=== PATIENT | male | born 1990 | race African-American/Black ===

== ENCOUNTER 2018-04-20 21:00 | Emergency (ER) | payer OTHER ==
--- NOTE | 2018-04-20 22:56 | EDPHYS ---
Physician Documentation [facility] Name: Keagan Meier Age: 27 yrs Sex: Male : 1990 Arrival Date: 04/20/2018 Time: 21:02 Bed 28 Private MD: ED Physician Luis Antonio Santos HPI: 04/21 00:00 This 27 yrs old Black Male presents to ER via Ambulatory with complaints of Cyst. pm1 00:00 The patient presents to the emergency department with pain in the rectal area. Onset: pm1 The symptoms/episode began/occurred 3 day(s) ago. Context: the patient has no known special context relating to the rectal area complaint(s). Modifying factors: The symptoms are alleviated by nothing, The symptoms are aggravated by sitting position. Associate signs and symptoms: Pertinent negatives: abdominal pain, constipation, diarrhea, fever, lower GI bleeding, vomiting. The patient has not experienced similar symptoms in the past. The patient has not recently seen a physician. Historical: - Allergies: 04/20 21:25 No Known Allergies; fc - Home Meds: 21:25 None [Active]; fc - PMHx: 21:25 None; fc - PSHx: 21:25 left hand surg; fc - Immunization history:: Last tetanus immunization: unknown. - Social history:: Smoking status: Patient uses tobacco products, 1.5 ppd, Patient uses alcohol, occasionally. Patient/guardian denies using street drugs. - Ebola Screening: : Patient negative for fever greater than or equal to 101.5 degrees Fahrenheit, and additional compatible Ebola Virus Disease symptoms Patient denies exposure to infectious person Patient denies travel to an Ebola-affected area in the 21 days before illness onset. ROS: 04/21 00:00 Constitutional: Negative for fever, chills, and weight loss, Neck: Negative for injury, pm1 pain, and swelling, Cardiovascular: Negative for chest pain, palpitations, and edema, Respiratory: Negative for shortness of breath, cough, wheezing, and pleuritic chest pain. Back: Negative for injury and pain, : Negative for injury, bleeding, discharge, and swelling, MS/Extremity: Negative for injury and deformity, Skin: Negative for injury, rash, and discoloration, Neuro: Negative for headache, weakness, numbness, tingling, and seizure. Abdomen/GI: Positive for rectal pain, Negative for abdominal pain, nausea, vomiting, and diarrhea, black/tarry stool, rectal bleeding. Exam: 00:00 Constitutional: This is a well developed, well nourished patient who is awake, alert, pm1 and in no acute distress. Head/Face: Normocephalic, atraumatic. Chest/axilla: Normal chest wall appearance and motion. Nontender with no deformity. No lesions are appreciated. Cardiovascular: Regular rate and rhythm with a normal S1 and S2. No gallops, murmurs, or rubs. Normal PMI, no JVD. No pulse deficits. Respiratory: Lungs have equal breath sounds bilaterally, clear to auscultation and percussion. No rales, rhonchi or wheezes noted. No increased work of breathing, no retractions or nasal flaring. Back: No spinal tenderness. No costovertebral tenderness. Full range of motion. 00:00 Skin: Warm, dry with normal turgor. Normal color with no rashes, no lesions, and no evidence of cellulitis. MS/ Extremity: Pulses equal, no cyanosis. Neurovascular intact. Full, normal range of motion. 00:00 Abdomen/GI: Inspection: abdomen appears normal, Bowel sounds: normal, Palpation: abdomen is soft and non-tender, Rectal exam: hemorrhoid(s), external, with inflammation, with pain, without bleeding, without thrombosis, tenderness, that is moderate, the exam is chaperoned by the nurse. Vital Signs: 04/20 21:25 BP 119 / 77; Pulse 90; Resp 16; Temp 98.4(O); Pulse Ox 98% on R/A; Weight 72.57 kg (R); fc Height 5 ft. 4 in. (162.56 cm) (R); Pain 10/10; 23:19 BP 122 / 82; Pulse 84; Resp 18; Pulse Ox 99% on R/A; tl3 21:25 Body Mass Index 27.46 (72.57 kg, 162.56 cm) fc MDM: 22:10 Patient medically screened. pm1 22:49 Data reviewed: vital signs. Data interpreted: Pulse oximetry: on room air is 98 %. pm1 Interpretation: normal. Counseling: I had a detailed discussion with the patient and/or guardian regarding: the historical points, exam findings, and any diagnostic results supporting the discharge/admit diagnosis, the need for outpatient follow up, a general surgeon, to return to the emergency department if symptoms worsen or persist or if there are any questions or concerns that arise at home. Administered Medications: 23:18 Drug: TORadol 60 mg Route: IM; Site: left gluteus; tl3 23:19 Follow up: Response: Medication administered at discharge. tl3 Disposition: 04/21 06:31 Co-signature as Attending Physician, Luis Antonio Santos MD I agree with the assessment and tw4 plan of care. Disposition: 04/20/18 22:56 Discharged to Home. Impression: Hemorrhoid. - Condition is Stable. - Discharge Instructions: Hemorrhoids. - Prescriptions for Colace 100 mg Oral Tablet - take 1 tablet by ORAL route every 12 hours; 14 tablet. Tylenol- Codeine #3 300-30 mg Oral Tablet - take 2 tablets by ORAL route every 6 hours As needed; 20 tablet. Anusol- HC 2.5 % Rectal Cream - Apply to affected area 1 application by TOPICAL route every 8 hours As needed; 30 gram. - Medication Reconciliation Form, Thank You Letter, Prescription Opioid Use form. - Follow up: Emergency Department; When: As needed; Reason: Worsening of condition. Follow up: William Cortes MD; When: 1 - 2 days; Reason: Recheck today's complaints, Continuance of care, Re-evaluation by your physician. - Problem is new. - Symptoms have improved. Signatures: Rochelle Rivas, RN RN Talon Anne, TITLE PROCESSOR TITLE PROCESSOR pm1 Luis Antonio Satnos MD MD tw4 Ivy Gibbons RN RN tl3 Corrections: (The following items were deleted from the chart) 04/20 23:21 22:56 04/20/2018 22:56 Discharged to Home. Impression: Hemorrhoid. Condition is Stable. tl3 Forms are Medication Reconciliation Form, Thank You Letter, Antibiotic Education, Prescription Opioid Use. Follow up: Emergency Department; When: As needed; Reason: Worsening of condition. Follow up: William Cortes; When: 1 - 2 days; Reason: Recheck today's complaints, Continuance of care, Re-evaluation by your physician. Problem is new. Symptoms have improved. pm1
--- NOTE | 2018-04-20 22:56 | ER ---
Nurse's Notes [facility] Name: Keagan Meier Age: 27 yrs Sex: Male : 1990 Arrival Date: 04/20/2018 Time: 21:02 Bed 28 Private MD: Diagnosis: Hemorrhoid Presentation: 04/20 21:22 Presenting complaint: Patient states: that he has a cyst right above his "butt hole" fc that has been there for about 3 days. It is getting worse and is very tender. Even hurts to sit. Transition of care: patient was not received from another setting of care. Onset of symptoms was April 17, 2018. Risk Assessment: Do you want to hurt yourself or someone else? Patient reports no desire to harm self or others. Initial Sepsis Screen: Does the patient meet any 2 criteria? No. Patient's initial sepsis screen is negative. Does the patient have a suspected source of infection? No. Patient's initial sepsis screen is negative. Care prior to arrival: None. 21:22 Method Of Arrival: Ambulatory 21:22 Acuity: DOUG 4 Triage Assessment: 21:25 General: Appears uncomfortable, slender, Behavior is calm, cooperative, appropriate for age. Pain: Complains of pain in coccyx Pain currently is 10 out of 10 on a pain scale. Quality of pain is described as aching, throbbing, Pain began 2-3 days ago. Is continuous, Aggravated by increased activity, repositioning. EENT: No deficits noted. Neuro: Level of Consciousness is awake, alert, obeys commands, Oriented to person, place, time, situation. Cardiovascular: No deficits noted. Respiratory: No deficits noted. GI: No deficits noted. : No deficits noted. Derm: Skin is pink, warm \\T\\ dry. Abscess located on coccyx Reports pain. Musculoskeletal: Circulation, motion, and sensation intact. Capillary refill < 3 seconds, Range of motion: intact in all extremities. Historical: - Allergies: 21:25 No Known Allergies; fc - Home Meds: 21:25 None [Active]; fc - PMHx: 21:25 None; fc - PSHx: 21:25 left hand surg; fc - Immunization history:: Last tetanus immunization: unknown. - Social history:: Smoking status: Patient uses tobacco products, 1.5 ppd, Patient uses alcohol, occasionally. Patient/guardian denies using street drugs. - Ebola Screening: : Patient negative for fever greater than or equal to 101.5 degrees Fahrenheit, and additional compatible Ebola Virus Disease symptoms Patient denies exposure to infectious person Patient denies travel to an Ebola-affected area in the 21 days before illness onset. Screenin:16 Abuse screen: Denies threats or abuse. Nutritional screening: No deficits noted. tl3 Tuberculosis screening: No symptoms or risk factors identified. Fall Risk None identified. Assessment: 22:16 General: Appears uncomfortable, slender, well groomed, well developed, well nourished, tl3 Behavior is calm, cooperative, appropriate for age. Pain: Complains of pain in buttocks and coccyx. Neuro: Level of Consciousness is awake, alert, obeys commands, Oriented to person, place, time, situation, Appropriate for age. Cardiovascular: No deficits noted. Denies chest pain, diaphoresis, fatigue, lightheadedness, nausea, palpitations, shortness of breath, syncope. Respiratory: Airway is patent Respiratory effort is even, unlabored, Respiratory pattern is regular, symmetrical. GI: No signs and/or symptoms were reported involving the gastrointestinal system. : No signs and/or symptoms were reported regarding the genitourinary system. EENT: No signs and/or symptoms were reported regarding the EENT system. Derm: Abscess located on buttocks and coccyx. Musculoskeletal: No signs and/or symptoms reported regarding the musculoskeletal system. 23:19 Reassessment: Patient appears in no apparent distress at this time. No changes from tl3 previously documented assessment. Patient and/or family updated on plan of care and expected duration. Pain level reassessed. Patient is alert, oriented x 3, equal unlabored respirations, skin warm/dry/pink. Vital Signs: 21:25 BP 119 / 77; Pulse 90; Resp 16; Temp 98.4(O); Pulse Ox 98% on R/A; Weight 72.57 kg (R); fc Height 5 ft. 4 in. (162.56 cm) (R); Pain 10/10; 23:19 BP 122 / 82; Pulse 84; Resp 18; Pulse Ox 99% on R/A; tl3 21:25 Body Mass Index 27.46 (72.57 kg, 162.56 cm) ED Course: 21:02 Patient arrived in ED. am2 21:24 Triage completed. fc 21:25 Arm band placed on Patient placed in waiting room, Patient notified of wait time. fc 22:10 Talon Anne NP is PHCP. pm1 22:10 Luis Antonio Santos MD is Attending Physician. pm1 22:15 Ivy Gibbons, RN is Primary Nurse. tl3 22:16 Patient has correct armband on for positive identification. tl3 22:16 No provider procedures requiring assistance completed. Patient did not have IV access tl3 during this emergency room visit. 22:55 William Cortes MD is Referral Physician. pm1 Administered Medications: 23:18 Drug: TORadol 60 mg Route: IM; Site: left gluteus; tl3 23:19 Follow up: Response: Medication administered at discharge. tl3 Outcome: 22:56 Discharge ordered by . pm1 23:19 Discharged to home ambulatory. tl3 23:19 Condition: good 23:19 Discharge instructions given to patient, Instructed on discharge instructions, follow up and referral plans. medication usage, Demonstrated understanding of instructions, follow-up care, medications, Prescriptions given X 3. 23:21 Patient left the ED. tl3 Signatures: Rochelle Rivas RN RN Talon Anne, COLLEEN BUTTER PRODUCTION SUPERVISOR pm1 Felipa Vazquez am2 Ivy Gibbons, RN RN tl3
[2018-04-20] MEDS ORDERED: KETOROLAC 30 MG/ML INJ ONE (23:04)
== END 2018-04-20 23:21 | disposition home or self-care (01) ==
LOC: ER 21:00
DX: K64.4 Residual hemorrhoidal skin tags (principal); F17.210 Nicotine dependence, cigarettes, uncomplicated
CPT/HCPCS: 96372; 99283

== ENCOUNTER 2018-04-24 18:28 | Emergency (ER) | payer OTHER ==
[2018-04-24] MEDS ORDERED: LIDOCAINE VISCOUS 2% SOLN 15 ML UDC ONE (19:15)
[2018-04-24] MEDS ORDERED: LIDOCAINE JELLY 2%- 5 ML TUBE ONE (19:15)
--- NOTE | 2018-04-24 19:28 | ER ---
Nurse's Notes [facility] Name: Keagan Meier Age: 27 yrs Sex: Male : 1990 Arrival Date: 04/24/2018 Time: 18:32 Bed 20 Private MD: None, None Diagnosis: External Hermorrhoid - Non thrombosed Presentation: 04/24 18:40 Presenting complaint: Patient states: " I was here last week and they said I had ph hemorrhoids but it's not getting any better. It still really hurts and I had to leave work." Pt denies N/V or constipation. Transition of care: patient was not received from another setting of care. Onset of symptoms was April 24, 2018. Risk Assessment: Do you want to hurt yourself or someone else? Patient reports no desire to harm self or others. Initial Sepsis Screen: Does the patient meet any 2 criteria? No. Patient's initial sepsis screen is negative. Does the patient have a suspected source of infection? No. Patient's initial sepsis screen is negative. Care prior to arrival: None. 18:40 Method Of Arrival: Ambulatory ph 18:40 Acuity: DOUG 4 ph Historical: - Allergies: 18:43 No Known Allergies; ph - Home Meds: 18:43 Tylenol #3 Oral [Active]; ph - PSHx: 18:43 left hand surg; ph - Immunization history:: Adult Immunizations unknown. - Social history:: Smoking status: Patient uses tobacco products, smokes one-half pack cigarettes per day. - Ebola Screening: : No symptoms or risks identified at this time. Screenin:00 Abuse screen: Denies threats or abuse. Denies injuries from another. Nutritional bs1 screening: No deficits noted. Tuberculosis screening: No symptoms or risk factors identified. Fall Risk None identified. Assessment: 19:10 General: Appears in no apparent distress. uncomfortable, Behavior is cooperative. Pain: bs1 Complains of pain in anal. Neuro: Level of Consciousness is awake, alert, obeys commands, Oriented to person, place, time, situation, Appropriate for age. Cardiovascular: Denies chest pain, shortness of breath, Heart tones S1 S2 present Capillary refill < 3 seconds Patient's skin is warm and dry. 19:10 Respiratory: Airway is patent Trachea midline Respiratory effort is even, unlabored, bs1 Respiratory pattern is regular, symmetrical, Breath sounds are clear bilaterally. GI: Abdomen is round non-distended, Bowel sounds present X 4 quads. GI: Reports hemorrhoids. : No signs and/or symptoms were reported regarding the genitourinary system. EENT: No signs and/or symptoms were reported regarding the EENT system. Derm: Skin is intact, Skin is pink, warm \\T\\ dry. Musculoskeletal: Circulation, motion, and sensation intact. Capillary refill < 3 seconds, Range of motion: intact in all extremities. 20:00 Reassessment: Patient appears in no apparent distress at this time. Patient and/or bs1 family updated on plan of care and expected duration. Pain level reassessed. Patient is alert, oriented x 3, equal unlabored respirations, skin warm/dry/pink. Patient states feeling better. Vital Signs: 18:42 BP 129 / 73; Pulse 68; Resp 16; Temp 97.6; Pulse Ox 99% on R/A; Weight 74.84 kg; Height ph 5 ft. 4 in. (162.56 cm); Pain 8/10; 19:30 BP 128 / 72; Pulse 68; Resp 16; Temp 97.7(O); Pulse Ox 100% on R/A; Pain 5/10; bs1 18:42 Body Mass Index 28.32 (74.84 kg, 162.56 cm) ph ED Course: 18:32 Patient arrived in ED. mr 18:32 None, None is Private Physician. mr 18:42 Triage completed. ph 18:43 Arm band placed on. ph 18:46 [facility] 18:46 Wesley Mccollum MD is Attending Physician. [facility] 19:02 Rasta Aviles, RN is Primary Nurse. jd3 19:08 Cristina Alfaro, ALLAN is Primary Nurse. bs1 19:10 Patient has correct armband on for positive identification. Bed in low position. Call bs1 light in reach. Side rails up X 1. Pulse ox on. NIBP on. 19:27 Calvin Art MD is Referral Physician. [facility] 20:00 No provider procedures requiring assistance completed. Patient did not have IV access bs1 during this emergency room visit. Administered Medications: 19:20 Drug: Lidocaine Gel 2 % 1 application {Note: Administered by Mickail, PA.} Route: bs1 Mucous Membrane; 20:01 Follow up: Response: No adverse reaction bs1 Outcome: 19:27 Discharge ordered by MD. helms 20:00 Discharged to home ambulatory. bs1 20:00 Condition: stable 20:00 Discharge instructions given to patient, Instructed on discharge instructions, follow up and referral plans. medication usage, Demonstrated understanding of instructions, follow-up care, medications, Prescriptions given X 2. 20:01 Patient left the ED. bs1 Signatures: Frank Adames PA PA jmm Rivera, Maria mr Hall, Patricia, RN RN noni Aviles, ALLAN Magdaleno RN jCristina Vanegas RN RN bs1
--- NOTE | 2018-04-24 19:29 | EDPHYS ---
Physician Documentation [facility] Name: Keagan Meier Age: 27 yrs Sex: Male : 1990 Arrival Date: 04/24/2018 Time: 18:32 Bed 20 Private MD: None, None ED Physician Wesley Mccollum HPI: 04/24 19:21 This 27 yrs old Black Male presents to ER via Ambulatory with complaints of Hemorrhoids.jmm 19:21 The patient presents to the emergency department with pain in the rectal area. Onset: jmm The symptoms/episode began/occurred gradually, 1 week(s) ago. Associated signs and symptoms: Pertinent positives: Pertinent negatives: abdominal pain, fever. Modifying factors: The patient symptoms are alleviated by remaining still, rest, the patient symptoms are aggravated by walking, sitting. This is a 27 year old male with no chronic medical conditions that presents to the ED with rectal pain and swelling beginning approx 1 week ago. The patient was diagnosed with external hemorrhoids. Patient states symptoms have not resolved inspite of using the cream. Pain is unrelieved with tylenol with codeine. . Historical: - Allergies: 18:43 No Known Allergies; ph - Home Meds: 18:43 Tylenol #3 Oral [Active]; ph - PSHx: 18:43 left hand surg; ph - Immunization history:: Adult Immunizations unknown. - Social history:: Smoking status: Patient uses tobacco products, smokes one-half pack cigarettes per day. - Ebola Screening: : No symptoms or risks identified at this time. ROS: 19:21 Constitutional: Negative for fever, chills, and weight loss, Cardiovascular: Negative jmm for chest pain, palpitations, and edema, Respiratory: Negative for shortness of breath, cough, wheezing, and pleuritic chest pain. 19:21 Abdomen/GI: Positive for rectal pain, Negative for abdominal pain, nausea and vomiting, rectal bleeding. 19:21 Neuro: Negative for weakness. 19:21 All other systems are negative. Exam: 19:21 Head/Face: atraumatic. Cardiovascular: Regular rate and rhythm. No gallops, murmurs, jmm or rubs. Full/Equal distal pulses. Respiratory: Lungs have equal breath sounds bilaterally, clear to auscultation. No rales, rhonchi or wheezes noted. No increased work of breathing, no retractions or nasal flaring. 19:21 Constitutional: The patient appears in no acute distress, alert, awake. 19:21 Abdomen/GI: external hemorrhoir noted, no induration or erythema appreciated, no perirectal mass is appreciated. . 19:21 Back: pain, is absent, ROM is normal. 19:21 Musculoskeletal/extremity: ROM: intact in all extremities. 19:21 Skin: Appearance: Color: normal in color. 19:21 Neuro: Orientation: is normal, Mentation: is normal, Memory: is normal. 19:21 Psych: Behavior/mood is pleasant, cooperative. Vital Signs: 18:42 BP 129 / 73; Pulse 68; Resp 16; Temp 97.6; Pulse Ox 99% on R/A; Weight 74.84 kg; Height ph 5 ft. 4 in. (162.56 cm); Pain 8/10; 19:30 BP 128 / 72; Pulse 68; Resp 16; Temp 97.7(O); Pulse Ox 100% on R/A; Pain 5/10; bs1 18:42 Body Mass Index 28.32 (74.84 kg, 162.56 cm) ph MDM: 19:09 Patient medically screened. [facility] 19:21 Differential diagnosis: hemorrhoid, external. Data reviewed: vital signs, nurses notes. [facility] ED course: Patient is afebrile and non toxic in appearance, no perirectal mass on YAIR is appreciated. Patient is given information on sitz baths, stool softeners, and advised to follow up with GI for further evaluation. The patient understood and agrees with the plan of care. . Administered Medications: 19:20 Drug: Lidocaine Gel 2 % 1 application {Note: Administered by PA. Rosangela} Route: bs1 Mucous Membrane; 20:01 Follow up: Response: No adverse reaction bs1 Disposition: 04/24/18 19:27 Discharged to Home. Impression: External Hermorrhoid - Non thrombosed. - Condition is Stable. - Discharge Instructions: Hemorrhoids, Sitz Bath. - Prescriptions for Anusol- HC 2.5 % Rectal Cream - Apply to affected area 1 application by TOPICAL route every 8 hours As needed; 30 gram. Colace 100 mg Oral Tablet - take 1 tablet by ORAL route every 12 hours; 14 tablet. - Medication Reconciliation Form, Thank You Letter, Antibiotic Education, Prescription Opioid Use, Work release form form. - Follow up: Calvin Art MD; When: As needed; Reason: Continuance of care. - Notes: Please follow up with gastroenterology for further evaluation. Please return to the ED if you develop increased pain, fever, abdominal pain, or any other concerning symptoms. Addendum: 04/29/2018 15:25 Co-signature as Attending Physician, Wesley Mccollum MD I agree with the assessment and k dr plan of care. Signatures: Wesley Mccollum MD MD [facility] Frank Adames PA PA jmm Hall, Patricia, RN RN Cristina Alfaro RN RN bs1 Corrections: (The following items were deleted from the chart) 04/24 20:01 19:27 04/24/2018 19:27 Discharged to Home. Impression: External Hermorrhoid - Non bs1 thrombosed. Condition is Stable. Forms are Medication Reconciliation Form, Thank You Letter, Antibiotic Education, Prescription Opioid Use. Follow up: Calvin Art; When: As needed; Reason: Continuance of care. [facility]
== END 2018-04-24 20:01 | disposition home or self-care (01) ==
LOC: ER 18:28
DX: K64.4 Residual hemorrhoidal skin tags (principal); F17.210 Nicotine dependence, cigarettes, uncomplicated
CPT/HCPCS: 99283

== ENCOUNTER 2020-01-23 17:27 | Emergency (ER) | payer OTHER, SELFPAY ==
--- OUTSIDE RECORDS SUMMARY | 2020-01-23 17:29 | XMS REPORT | Summary of Care ---
:1990 Author Organization [facility] Address [address] [place] [id number] Care Team Providers Name Role Phone Pcp, Patient Does Not Have A Primary Care Provider Reason for Visit Reason Comments Laceration to the left side of the head Auth/Cert Status Reason Specialty Diagnoses / Referred By Referred To Procedures Contact Contact Emergency Medicine [facility] [address], [place] [address] Encounter Details Date Type Department Care Team Description 01/19/2020 Emergency [facility]-Emergency Wesley Holland, VIKA Laceration of scalp, subsequent encounter (Primary Dx); Department [address] [place] [address]. Concussion without loss of consciousness, subsequent encounter [address], [place] [phone] Allergies No Known Allergiesdocumented as of this encounter (statuses as of 01/19/2020) Medications Medication Sig Dispensed Refills Start Date End Date Status ibuprofen (MOTRIN) 600 Take 1 tablet by 30 tablet 0 07/17/2016 Active mg tablet mouth every 6 (six) hours as needed for Pain (scale 4-6). ondansetron (ZOFRAN Take 1 tablet by 20 tablet 0 10/05/2017 Active ODT) 4 mg mouth every 8 disintegrating tablet (eight) hours as needed for Nausea and Vomiting (N/V). documented as of this encounter (statuses as of 01/19/2020) Active Problems Problem Noted Date Right ankle pain 11/18/2016 documented as of this encounter (statuses as of 01/19/2020) Immunizations Name Administration Dates Next Due Td 01/18/2020 documented as of this encounter Social History Tobacco Use Types Packs/Day Years Used Date Current Every Day Smoker Smokeless Tobacco: Never Used Alcohol Use Drinks/Week oz/Week Comments Yes 0 Standard drinks or equivalent 0.0 socially Sex Assigned at Date Recorded Not on file Job Start Date Occupation Industry Not on file Not on file Not on file Travel History Travel Start Travel End No recent travel history available. documented as of this encounter Last Filed Vital Signs Vital Sign Reading Time Taken Comments Blood Pressure 149/85 01/19/2020 8:08 PM WINDSHIELD TECHNICIAN Pulse 65 01/19/2020 8:08 PM WINDSHIELD TECHNICIAN Temperature 36.7 C (98 F) 01/19/2020 8:08 PM WINDSHIELD TECHNICIAN Respiratory Rate 18 01/19/2020 8:08 PM WINDSHIELD TECHNICIAN Oxygen Saturation 100% 01/19/2020 8:08 PM WINDSHIELD TECHNICIAN Inhaled Oxygen Concentration - - Weight 71.2 kg (157 lb) 01/19/2020 8:08 PM WINDSHIELD TECHNICIAN Height 160 cm (5' 3") 01/19/2020 8:08 PM WINDSHIELD TECHNICIAN Body Mass Index 27.81 01/19/2020 8:08 PM WINDSHIELD TECHNICIAN documented in this encounter Discharge Instructions Wesley Thompson, VIKA - 01/19/2020DIAGNOSIS 1. Scalp laceration 2. Concussion NO LIFE-THREATENING FINDINGS ON TODAY'S EXAM. PROCEDURES IN THE ER TODAY: Emergency medical evaluation, staple MEDICATIONS ADMINISTERED IN THE ER TODAY: none YOUR PRESCRIPTIONS AND [id number]-[id number] MEDICATION RECOMMENDATIONS: Tylenol for pain FOLLOW-UP RECOMMENDATIONS: RECOMMEND FOLLOW-UP WITH A PRIMARY CARE PROVIDER OR SPECIALIST IN 2-5 DAYS, ESPECIALLY IF NO IMPROVEMENT IN SYMPTOMS. MAY FOLLOW-UP WITH A PROVIDER OF YOUR CHOICE, SUCH : 1. A PHYSICIAN OF YOUR CHOICE 2. [facility], . LOCATIONS IN [facility] 3. [facility], [address] [place] [address]; OR, IF YOU WISH TO FOLLOW-UP WITHIN THE [facility], MAY TRY THESE OPTIONS (CLINIC APPOINTMENTS AVAILABLE ON [id number] BASIS): 1. SCHEDULE AN APPOINTMENT ONLINE AT WWW.[facility] 2. OR CALL THE [facility] ACCESS CENTER AT OR 3. OR CALL YOUR [facility] PHYSICIAN'S OFFICE DIRECTLY IF YOU ARE ALREADY AN ESTABLISHED [facility] PATIENT. RETURN TO ER FOR WORSENING OF SYMPTOMS. AttachmentsThe following attachments cannot be sent through Care Everywhere.Head Injury (Adult) (Afghan)Mild Traumatic Brain Injury (Concussion) , Treatment for (Afghan)Traumatic Brain Injury, What Is (Afghan)Laceration, Scalp: Sutures or [place] (Afghan)documented in this encounter Plan of Treatment Health Maintenance Due Date Last Done Comments VARICELLA VACCINES (1 of 2 - 2-dose childhood series) 1993 PNEUMOCOCCAL 0-64 YEARS COMBINED SERIES (1 of 1 - 1998 PPSV23) DTaP,Tdap,and Td Vaccines (1 - Tdap) 2003 01/18/2020 INFLUENZA VACCINE (#1) 2019 documented as of this encounter Procedures Procedure Name Priority Date/Time Associated Diagnosis Comments NOTICE OF PRIVACY Routine 01/19/2020 7:58 PM WINDSHIELD TECHNICIAN PRACTICES documented in this encounter Results Not on filedocumented in this encounter Visit Diagnoses Diagnosis Laceration of scalp, subsequent encounter - Primary Concussion without loss of consciousness, subsequent encounter documented in this encounter
--- OUTSIDE RECORDS SUMMARY | 2020-01-23 17:29 | XMS REPORT | Summary of Care ---
:1990 Author Organization [facility] - Health Address [address] [place] [address] Care Team Providers Name Role Phone Pcp, Patient Does Not Have A Primary Care Provider Reason for Visit Reason Comments Laceration Auth/Cert Status Reason Specialty Diagnoses / Referred By Referred To Procedures Contact Contact Emergency Medicine [facility] [address] [place] [address] [place] [address] Encounter Details Date Type Department Care Team Description 01/18/2020 Emergency [facility]-Emergency Department Christie Rodriguez, DO [address] [facility] [address] [place] [address] [place] [address] [phone] Allergies No Known Allergiesdocumented as of this encounter (statuses as of 01/18/2020) Medications Medication Sig Dispensed Refills Start Date [...] as of this encounter (statuses as of 01/18/2020) Active Problems Problem Noted Date Right ankle pain 11/18/2016 documented as of this encounter (statuses as of 01/18/2020) Immunizations Name Administration Dates Next Due Td [...] Sign Reading Time Taken Comments Blood Pressure 135/87 01/18/2020 10:54 PM PUBLIC HEALTH SPECIALIST Pulse 110 01/18/2020 10:54 PM PUBLIC HEALTH SPECIALIST Temperature 38.1 C (100.5 F) 01/18/2020 10:54 PM PUBLIC HEALTH SPECIALIST Respiratory Rate 16 01/18/2020 10:54 PM PUBLIC HEALTH SPECIALIST Oxygen Saturation 98% 01/18/2020 10:54 PM PUBLIC HEALTH SPECIALIST Inhaled Oxygen Concentration - - Weight 71.2 kg (157 lb) 01/18/2020 10:54 PM PUBLIC HEALTH SPECIALIST Height 160 cm (5' 3") 01/18/2020 10:54 PM PUBLIC HEALTH SPECIALIST Body Mass Index 27.81 01/18/2020 10:54 PM PUBLIC HEALTH SPECIALIST documented in this encounter Discharge Instructions Christie Mckeon, - 01/18/2020DIAGNOSIS 1. Laceration NO LIFE-THREATENING FINDINGS ON TODAY'S EXAM. PROCEDURES IN THE ER TODAY: Staple placement MEDICATIONS ADMINISTERED IN THE ER TODAY: None YOUR PRESCRIPTIONS AND [id number] MEDICATION RECOMMENDATIONS: none SPECIAL CARE INSTRUCTIONS: You will need to have your nellie removed in 10 days. Please return to the emergency department orfollow-up with your primary care physician for this. FOLLOW-UP RECOMMENDATIONS: RECOMMEND FOLLOW-UP WITH A PRIMARY CARE PROVIDER OR SPECIALIST IN 2-5 DAYS, ESPECIALLY IF NO IMPROVEMENT IN SYMPTOMS. TO FOLLOW-UP WITHIN THE [facility], TRY THESE OPTIONS (CLINIC APPOINTMENTS AVAILABLE ON [id number] BASIS): 1. SCHEDULE AN APPOINTMENT ONLINE AT WWW[facility] 2. OR CALL THE [facility] ACCESS CENTER AT OR 3. OR CALL YOUR [facility] PHYSICIAN'S OFFICE DIRECTLY IF YOU ARE ALREADY AN ESTABLISHED [facility] PATIENT. OR, YOU MAY FOLLOW-UP WITH A PROVIDER OF YOUR CHOICE, SUCH : 1. A PHYSICIAN OF YOUR CHOICE 2. [facility], . LOCATIONS IN [facility] 3. [facility], [address], [place]; RETURN TO ER FOR WORSENING OF SYMPTOMS. AttachmentsThe following attachments cannot be sent through Care Everywhere.Laceration, Extremity: Skin Glue (Gabonese)Laceration, Scalp: Sutures or [place] (Gabonese)documented in this encounter Plan of Treatment Health Maintenance Due Date Last Done Comments VARICELLA VACCINES (1 of 2 - 13+ 2005 2-dose series) DTaP,Tdap,and Td Vaccines (1 - 2011 Tdap) INFLUENZA VACCINE (#1) 2019 HPV VACCINES Aged Out No longer eligible based on patient's age to complete this topic PNEUMOCOCCAL 0-64 YEARS COMBINED Aged Out No longer eligible based on SERIES patient's age to complete this topic documented as of this encounter Results Not on filedocumented in this encounter Administered Medications Medication Order MAR Action Action Date Dose Rate Site tetanus-diphtheria Given 01/18/2020 11:04 PM 0.5 mL Right Deltoid-IM toxoids (TDVAX) 2-2 Lf PUBLIC HEALTH SPECIALIST unit/0.5 mL injection 0.5 mL 0.5 mL, Intramuscular, ONCE, 1 dose, 01/19/20 at 0000, Routine documented in this encounter
--- NOTE | 2020-01-23 18:41 | RAD REPORT ---
EXAM DESCRIPTION: RAD - Chest Pa And Lat (2 Views) - 01/23/2020 6:36 pm CLINICAL HISTORY: CHEST PAIN Chest pain. COMPARISON: No comparisons FINDINGS: The lungs are clear. The heart is normal in size. No displaced fractures. IMPRESSION: No acute or concerning finding suspected.
--- NOTE | 2020-01-23 19:15 | EDPHYS ---
Physician Documentation [facility] Name: Keagan Meier Age: 29 yrs Sex: Male : 1990 Arrival Date: 01/23/2020 Time: 17:30 Bed 14 Private MD: ED Physician Amaury Higgins HPI: 01/22 18:42 This 29 yrs old Black Male presents to ER via Ambulatory with complaints of NIPPLE la1 DRAINAGE/chest pain. 18:42 The patient or guardian reports chest pain that is located primarily in the substernal la1 area. The pain does not radiate. Associated signs and symptoms: Pertinent positives: cough. The chest pain is described as sharp. Duration: The patient or guardian reports multiple episodes. Severity of pain: At its worst the pain was moderate. The patient has experienced similar episodes in the past. pt reports that he gets chest pain on and off a lot but it was worse yesterday, then he was playing with his nipple and when he squeezed some liquid came out. Historical: - Allergies: 17:42 No Known Allergies; ph - PSHx: 17:42 left hand surg; ph - Immunization history:: Adult Immunizations unknown. - Social history:: Smoking status: Patient reports the use of cigarette tobacco products, smokes one-half pack cigarettes per day, Patient uses alcohol, occasionally. ROS: 18:44 Constitutional: Negative for fever, chills, and weight loss, Eyes: Negative for injury, la1 pain, redness, and discharge, ENT: Negative for injury, pain, and discharge, Neck: Negative for injury, pain, and swelling. 18:44 Respiratory: Negative for shortness of breath, cough, wheezing, and pleuritic chest pain, Abdomen/GI: Negative for abdominal pain, nausea, vomiting, diarrhea, and constipation, Back: Negative for injury and pain, MS/Extremity: Negative for injury and deformity, Neuro: Negative for headache, weakness, numbness, tingling, and seizure. 18:44 Cardiovascular: Positive for chest pain. Exam: 18:44 Constitutional: This is a well developed, well nourished patient who is awake, alert, la1 and in no acute distress. Head/Face: Normocephalic, atraumatic. Eyes: Pupils equal round and reactive to light, extra-ocular motions intact. Lids and lashes normal. Conjunctiva and sclera are non-icteric and not injected. Cornea within normal limits. Periorbital areas with no swelling, redness, or edema. ENT: Mucous membranes moist. Neck: Trachea midline,Supple, full range of motion without nuchal rigidity, or vertebral point tenderness. No Meningismus. Chest/axilla: Normal chest wall appearance and motion. Nontender with no deformity. No lesions are appreciated. No masses to breast tissue palpated Cardiovascular: Regular rate and rhythm with a normal S1 and S2. No gallops, murmurs, or rubs. Normal PMI, no JVD. No pulse deficits. Respiratory: Lungs have equal breath sounds bilaterally, clear to auscultation Abdomen/GI: Soft, non-tender, with normal bowel sounds. Back: No spinal tenderness. No costovertebral tenderness. Full range of motion. Skin: Warm, dry with normal turgor. Normal color with no rashes, no lesions, and no evidence of cellulitis. Neuro: Awake and alert, GCS 15, oriented to person, place, time, and situation. Cranial nerves II-XII grossly intact. Motor strength 5/5 in all extremities. Sensory grossly intact. Cerebellar exam normal. Normal gait. Vital Signs: 17:37 BP 142 / 82; Pulse 90; Resp 18; Temp 98.1; Pulse Ox 99% on R/A; Weight 71.21 kg; Height ph 5 ft. 3 in. (160.02 cm); Pain 0/10; 17:37 Body Mass Index 27.81 (71.21 kg, 160.02 cm) ph MDM: 18:45 Patient medically screened. la1 19:12 ECG:. Data reviewed: vital signs, nurses notes, EKG, radiologic studies, I have la1 discussed the patient's presentation/case with the attending Emergency Department Physician; and as a result, I will discharge patient. Data interpreted: Pulse oximetry: on room air is 99 %. Interpretation: normal. Counseling: I had a detailed discussion with the patient and/or guardian regarding: the historical points, exam findings, and any diagnostic results supporting the discharge/admit diagnosis, lab results, radiology results, the need for outpatient follow up, a family practitioner, to return to the emergency department if symptoms worsen or persist or if there are any questions or concerns that arise at home. Special discussion: Based on the history and exam findings, there is no indication for further emergent testing or inpatient evaluation. I discussed with the patient/guardian the need to see the primary care provider for further evaluation of the symptoms. 03 18:24 Order name: Chest Pa And Lat (2 Views) XRAY; Complete Time: 18:53 la1 01/22 18:24 Order name: EKG; Complete Time: 18:24 la1 03 18:24 Order name: EKG - Nurse/Tech; Complete Time: 18:39 la1 EC:12 Rate is 53 beats/min. Rhythm is regular. QRS [place] is Normal. GA interval is normal at la1 168 msec. QRS interval is normal at 90 msec. QT interval is normal at 358 msec. No Q waves. T waves are Normal. ST Segment is elevated in leads V4, V5, V6, 1-2mm. Clinical impression: Sinus bradycardia and with early repolarization. Interpreted by me. Reviewed by me. Administered Medications: No medications were administered Disposition: 01/23 07:02 Co-signature as Attending Physician, Amaury Higgins MD. rn Disposition: 01/23/20 19:14 Discharged to Home. Impression: Chest pain, unspecified, Galactorrhea. - Condition is Stable. - Discharge Instructions: Galactorrhea, Nonspecific Chest Pain, Chest Wall Pain, Galactorrhea, [id number]. - Medication Reconciliation Form, Thank You Letter form. - Follow up: Private Physician; When: 2 - 3 days; Reason: Recheck today's complaints, Re-evaluation by your physician. - Problem is new. - Symptoms are unchanged. Signatures: Dispatcher [employer] EDAmaury Cosby MD MD rn Pena, Laura RN RN lp1 Christiano Tong, WINDOW MAKER-C WINDOW MAKER-Cla1 Dalia Meier, RN RN ph Corrections: (The following items were deleted from the chart) 01/22 19:20 19:14 01/23/2020 19:14 Discharged to Home. Impression: Chest pain, unspecified; lp1 Galactorrhea. Condition is Stable. Forms are Medication Reconciliation Form, Thank You Letter, Antibiotic Education, Prescription Opioid Use. Follow up: Private Physician; When: 2 - 3 days; Reason: Recheck today's complaints, Re-evaluation by your physician. Problem is new. Symptoms are unchanged. la1
--- NOTE | 2020-01-23 19:15 | ER ---
Nurse's Notes [facility] Name: Keagan Meier Age: 29 yrs Sex: Male : 1990 Arrival Date: 01/23/2020 Time: 17:30 Bed 14 Private MD: Diagnosis: Chest pain, unspecified;Galactorrhea Presentation: 01/22 17:37 Chief complaint: Patient states: Intermittent substernal chest pressure x approx 1 ph week, states, " I was rubbing my chest the other day and my nipple felt swollen so I squeezed it and some whitish stuff came out." Denies SOB,N/V or dizziness. Coronavirus screen: The patient has NOT traveled to a country currently being monitored by the [facility] within the last 14 days. The patient has NOT had contact with any known and/or suspected case of coronavirus. Ebola Screen: No symptoms or risks identified at this time. Initial Sepsis Screen: Does the patient meet any 2 criteria? No. Patient's initial sepsis screen is negative. Does the patient have a suspected source of infection? No. Patient's initial sepsis screen is negative. Risk Assessment: Do you want to hurt yourself or someone else? Patient reports no desire to harm self or others. 17:37 Method Of Arrival: Ambulatory ph 17:37 Acuity: DOUG 4 bp Triage Assessment: 17:45 General: Appears in no apparent distress. comfortable, Behavior is calm, cooperative, bp appropriate for age. Pain: Denies pain. EENT: No deficits noted. Neuro: No deficits noted. Cardiovascular: No deficits noted. Respiratory: No deficits noted. GI: No signs and/or symptoms were reported involving the gastrointestinal system. : No signs and/or symptoms were reported regarding the genitourinary system. Derm: No deficits noted. Musculoskeletal: No deficits noted. Historical: - Allergies: 17:42 No Known Allergies; ph - PSHx: 17:42 left hand surg; ph - Immunization history:: Adult Immunizations unknown. - Social history:: Smoking status: Patient reports the use of cigarette tobacco products, smokes one-half pack cigarettes per day, Patient uses alcohol, occasionally. Screenin:45 Abuse screen: Denies threats or abuse. Denies injuries from another. Nutritional bp screening: No deficits noted. Tuberculosis screening: No symptoms or risk factors identified. Fall Risk None identified. Assessment: 17:45 General: SEE TRIAGE NOTE. bp Vital Signs: 17:37 BP 142 / 82; Pulse 90; Resp 18; Temp 98.1; Pulse Ox 99% on R/A; Weight 71.21 kg; Height ph 5 ft. 3 in. (160.02 cm); Pain 0/10; 17:37 Body Mass Index 27.81 (71.21 kg, 160.02 cm) ph ED Course: 17:30 Patient arrived in ED. ag5 17:41 Triage completed. ph 17:41 Arm band placed on. ph 17:43 Anurag Lopez, RN is Primary Nurse. bp 17:45 Patient has correct armband on for positive identification. Bed in low position. Call bp light in reach. Side rails up X2. Adult w/ patient. Pulse ox on. NIBP on. 17:51 Christiano Tong FNP-C is PHCP. la1 17:51 Amaury Higgins MD is Attending Physician. la1 18:36 Chest Pa And Lat (2 Views) XRAY In Process Unspecified. EDMS 19:19 No provider procedures requiring assistance completed. Patient did not have IV access lp1 during this emergency room visit. Patient maintains SpO2 saturation greater than 95% on room air. Administered Medications: No medications were administered Outcome: 19:14 Discharge ordered by . la1 19:19 Discharged to home ambulatory. lp1 19:19 Condition: good 19:19 Discharge instructions given to patient, Instructed on discharge instructions, follow up and referral plans. Demonstrated understanding of instructions, follow-up care. 19:20 Patient left the ED. lp1 Signatures: Dispatcher [employer] EDMS Maribel Srivastava RN RN lp1 Christiano Tong FNP-C VIKA-Dalia Holliday RN RN ph Anurag Lopez, RN RN Emory Grimes ag5 Corrections: (The following items were deleted from the chart) 18:09 17:37 Acuity: DOUG 3 ph bp
[2020-01-23 19:53] VITALS: BP 142/82; TEMP 98.1; O2SAT 99
--- NOTE | 2020-01-24 07:49 | EKG ---
Test Date: 2020-01-23 Test Time: 17:49:42 Director Of Infection Prevention: BLESSING MEASUREMENT RESULTS: Intervals: Rate: 53 NE: 168 QRSD: 90 QT: 382 QTc: 358 [place]: P: 60 NE: 168 QRS: 70 T: 59 INTERPRETIVE STATEMENTS: Sinus bradycardia ST elevation, probably due to early repolarization Borderline ECG No previous ECG available for comparison Electronically Signed On 01-24-20 07:49:24 CDT by Tj Mckenzie
== END 2020-01-23 19:20 | disposition home or self-care (01) ==
LOC: ER 17:27
DX: N64.3 Galactorrhea not associated with childbirth (principal); F17.210 Nicotine dependence, cigarettes, uncomplicated
CPT/HCPCS: 71046; 93005; 99284

== ENCOUNTER 2020-01-27 13:25 | Emergency (ER) | payer SELFPAY ==
--- NOTE | 2020-01-27 14:27 | ER ---
Nurse's Notes [facility] Name: Keagan Meier Age: 29 yrs Sex: Male : 1990 Arrival Date: 01/27/2020 Time: 13:28 Bed Waiting Private MD: Diagnosis: Encounter for removal of sutures Presentation: 01/26 13:45 Chief complaint: Patient states: [place] removed, placed about 8 days ago. Coronavirus jl7 screen: The patient has NOT traveled to a country currently being monitored by the [facility] within the last 14 days. Proceed with normal triage procedures. Ebola Screen: No symptoms or risks identified at this time. Initial Sepsis Screen: Does the patient meet any 2 criteria? No. Patient's initial sepsis screen is negative. Does the patient have a suspected source of infection? No. Patient's initial sepsis screen is negative. Risk Assessment: Do you want to hurt yourself or someone else? Patient reports no desire to harm self or others. Onset of symptoms is unknown. 13:45 Method Of Arrival: Ambulatory jl7 13:45 Acuity: DOUG 5 jl7 Triage Assessment: 13:47 General: Appears in no apparent distress. uncomfortable, Behavior is calm, cooperative, jl7 appropriate for age. Pain: Denies pain. Historical: - Allergies: 13:47 No Known Allergies; jl7 - Home Meds: 13:47 None [Active]; jl7 - PMHx: 13:47 None; jl7 - Immunization history:: Adult Immunizations up to date. - Social history:: Smoking status: Patient reports the use of cigarette tobacco products, smokes one-half pack cigarettes per day. Screenin:48 Abuse screen: Denies threats or abuse. Denies injuries from another. Nutritional jl7 screening: No deficits noted. Tuberculosis screening: No symptoms or risk factors identified. Fall Risk None identified. Assessment: 13:50 General: See triage assessment. jl7 Vital Signs: 13:45 BP 133 / 81; Pulse 65; Resp 16; Temp 98.2; Pulse Ox 100% ; Pain 0/10; jl7 ED Course: 13:28 Patient arrived in ED. ag5 13:46 Christiano Tong FNP-C is [facility]. la1 13:46 Wesley Mccollum MD is Attending Physician. la1 13:46 Triage completed. jl7 13:47 Arm band placed on right wrist. jl7 13:48 Patient has correct armband on for positive identification. jl7 13:48 No provider procedures requiring assistance completed. Patient did not have IV access jl7 during this emergency room visit. Administered Medications: No medications were administered Outcome: 13:53 Discharge ordered by . la1 14:02 Discharged to home ambulatory. jl7 14:02 Condition: stable 14:02 Discharge instructions given to patient, Instructed on discharge instructions, follow up and referral plans. Demonstrated understanding of instructions, follow-up care. 14:02 Patient left the ED. jl7 Signatures: Christiano Tong, DOG AND CAT FOOD COOK-C DOG AND CAT FOOD COOK-Cla1 Jim Alvarez RN RN jl7 Emory Negron ag5
--- NOTE | 2020-01-27 14:28 | EDPHYS ---
Physician Documentation [facility] Name: Keagan Meier Age: 29 yrs Sex: Male : 1990 Arrival Date: 01/27/2020 Time: 13:28 Bed Waiting Private MD: ED Physician Wesley Mccollum HPI: 01/26 13:50 This 29 yrs old Black Male presents to ER via Ambulatory with complaints of Staple la1 Removal. 13:50 The patient has nellie on the scalp. Sutures/nellie progress: The patient has no la1 c/o's. The wound is well-healing with no redness, swelling, discharge, or dehiscence reported. The patient has not experienced similar symptoms in the past. Historical: - Allergies: 13:47 No Known Allergies; jl7 - Home Meds: 13:47 None [Active]; jl7 - PMHx: 13:47 None; jl7 - Immunization history:: Adult Immunizations up to date. - Social history:: Smoking status: Patient reports the use of cigarette tobacco products, smokes one-half pack cigarettes per day. ROS: 13:51 Constitutional: Negative for fever, chills, and weight loss, Eyes: Negative for injury, la1 pain, redness, and discharge, Cardiovascular: Negative for chest pain, palpitations, and edema, Respiratory: Negative for shortness of breath, cough, wheezing, and pleuritic chest pain, Abdomen/GI: Negative for abdominal pain, nausea, vomiting, diarrhea, and constipation, MS/Extremity: Negative for injury and deformity, Skin: Negative for injury, rash, and discoloration. Exam: 13:51 Constitutional: This is a well developed, well nourished patient who is awake, alert, la1 and in no acute distress. Skin: Warm, dry with normal turgor. Normal color with no rashes, no lesions, and no evidence of cellulitis. scalp wound well approximated, no redness, swelling or drainage Vital Signs: 13:45 BP 133 / 81; Pulse 65; Resp 16; Temp 98.2; Pulse Ox 100% ; Pain 0/10; jl7 Procedures: 13:51 Suture/Staple removal: Removed 4 nellie, from scalp, site appears well healed, Patient la1 tolerated well. MDM: 13:52 Data reviewed: vital signs, nurses notes. la1 13:53 Patient medically screened. la1 Administered Medications: No medications were administered Disposition: 17:22 Co-signature as Attending Physician, Wesley Mccollum MD I agree with the assessment and kdr plan of care. Disposition: 01/27/20 13:53 Discharged to Home. Impression: Encounter for removal of sutures. - Condition is Stable. - Discharge Instructions: Stitches, [place], or Adhesive Wound Closure, Incision Care, Adult. - Medication Reconciliation Form, Thank You Letter form. - Follow up: Private Physician; When: 2 - 3 days; Reason: Recheck today's complaints, Re-evaluation by your physician. - Problem is new. - Symptoms have improved. Signatures: Wesley Mccollum MD MD [facility] Christiano Tong, VIKA-C TECHNICAL SUPPORT REPRESENTATIVE-Cla1 Jim Alvarez RN RN jl7 Corrections: (The following items were deleted from the chart) 14:02 13:53 01/27/2020 13:53 Discharged to Home. Impression: Encounter for removal of jl7 sutures. Condition is Stable. Forms are Medication Reconciliation Form, Thank You Letter, Antibiotic Education, Prescription Opioid Use. Follow up: Private Physician; When: 2 - 3 days; Reason: Recheck today's complaints, Re-evaluation by your physician. Problem is new. Symptoms have improved. la1
[2020-01-27 15:05] VITALS: BP 133/81; TEMP 98.2; O2SAT 100
== END 2020-01-27 14:02 | disposition home or self-care (01) ==
LOC: ER 13:25
DX: Z48.02 Encounter for removal of sutures (principal)
CPT/HCPCS: 99281